=== PATIENT | female | born 1995 | race Caucasian/White ===

== ENCOUNTER 2019-04-14 23:03 | Emergency (ER) | payer SELFPAY ==
[~2019-04-14] VITALS: Ht 160 cm; Wt 64.0 kg
[2019-04-14 23:13] VITALS: BP 102/63
== END 2019-04-15 04:24 | disposition left against medical advice (07) ==
LOC: ER 23:03
DX: Z53.21 Procedure and treatment not carried out due to patient leaving prior to being seen by health care provider (principal)

== ENCOUNTER 2020-03-08 23:54 | Emergency (ER) | payer SELFPAY | END 2020-03-09 00:38 | disposition left against medical advice (07) | LOC: ER 23:54 | DX: Z53.21 Procedure and treatment not carried out due to patient leaving prior to being seen by health care provider (principal) ==

== ENCOUNTER 2020-03-12 06:14 | Emergency (ER) | payer MEDICAID ==
[~2020-03-12] VITALS: Ht 154.9 cm; Wt 59.0 kg
[2020-03-12 09:07] LABS: BASOPHILS % 0.1 % (0.0-2.0); HEMATOCRIT. 38.1 % (36.0-48.0); HEMOGLOBIN. 12.7 g/dL (12.0-16.0); LYMPHOCYTES % 8.3 % (20.0-50.0); MEAN CORPUSCULAR HEMOGLOBIN 30.2 pg (28.0-32.0); MEAN CORPUSCULAR VOLUME 90.5 fL (81.0-99.0); MEAN PLATELET VOLUME 7.8 fl (7.4-10.4); MONOCYTES % 6.1 % (2.0-8.0); NEUTROPHILS % 85.5 % (40.0-76.0); PLATELET 286 x1000/uL (130-400); RED BLOOD CELL COUNT 4.21 mill/uL (4.2-5.4); RED CELL DISTRIBUTION WIDTH 13.4 % (11.6-14.6)
[2020-03-12 09:10] LABS: CLARITY URINE CLOUDY (CLEAR); COLOR URINE DARK YELLOW (YELLOW); KETONES URINE 3+ (NEGATIVE); LEUKOCYTE ESTERASE URINE 2+ (NEGATIVE); NITRITE URINE POSITIVE (NEGATIVE); OCCULT BLOOD URINE NEGATIVE (NEGATIVE); PROTEIN URINE 1+ (NEGATIVE)
[2020-03-12 09:12] LABS: CHLORIDE 107 mEq/L (98-107)
[2020-03-12 09:38] LABS: B-HCG QUANTITATIVE 5403 mIU/mL (<3)
[2020-03-12] MEDS ORDERED: AZITHROMYCIN 500 MG in DEXT 5% WATER 250 ML IV SCH (13:00)
[2020-03-12] MEDS ORDERED: CEFTRIAXONE 1 G PREMIX 50 ML IV ONE (13:00)
[2020-03-12 16:37] VITALS: BP 120/78
== END 2020-03-12 16:37 | disposition left against medical advice (07) ==
LOC: ER 06:14
DX: O98.512 Other viral diseases complicating pregnancy, second trimester (principal); U07.1 COVID-19; O99.512 Diseases of the respiratory system complicating pregnancy, second trimester; J12.89 Other viral pneumonia; O23.42 Unspecified infection of urinary tract in pregnancy, second trimester; Z3A.22 22 weeks gestation of pregnancy
CPT/HCPCS: 36415; 71045; 76805; 80053; 81003; 81025; 84702; 85025; 87086; 87426; 99285; J0456; J7060

== ENCOUNTER 2022-04-21 10:28 | Emergency (ER) | payer SELFPAY ==
[~2022-04-21] VITALS: Ht 152.4 cm; Wt 60.0 kg
[2022-04-21 10:51] VITALS: BP 114/52
[2022-04-21] MEDS ORDERED: HYDR453.3 TP (12:05)
== END 2022-04-21 12:33 | disposition home or self-care (01) ==
LOC: ER 10:28
DX: T55.1X1A Toxic effect of detergents, accidental (unintentional), initial encounter (principal); L24.5 Irritant contact dermatitis due to other chemical products; Y93.G1 Activity, food preparation and clean up; Y92.010 Kitchen of single-family (private) house as the place of occurrence of the external cause
CPT/HCPCS: 99282

== ENCOUNTER 2022-05-29 11:06 | Emergency (ER) | payer OTHER ==
[~2022-05-29] VITALS: Ht 157.5 cm; Wt 78.0 kg
[~2022-05-29 11:06] MED LIST: HYDR453.3 TP
[2022-05-29 11:10] VITALS: BP 125/55
== END 2022-05-29 12:52 | disposition left against medical advice (07) ==
LOC: ER 11:37
DX: Z53.21 Procedure and treatment not carried out due to patient leaving prior to being seen by health care provider (principal)
CPT/HCPCS: 99281